=== PATIENT | male | born 1995 | race Caucasian/White ===

== ENCOUNTER 2017-03-08 15:28 | Emergency (ER) | payer BC, OTHER ==
[~2017-03-08] VITALS: Ht 170.2 cm; Wt 81.7 kg
[2017-03-08 15:28] VITALS: O2SAT 98; Ht 170.2 cm; Wt 81.7 kg
[~2017-03-08 15:28] MED LIST: CLIN1GEL31 TD; CPR500 PO; LISD30CA4 PO; MCRK20 PO
--- NOTE | 2017-03-08 15:47 | EMERGENCY ROOM VISIT NOTE ---
History Report prepared by Drake: Ursula Don Under the Supervision of: Dr. Luis Enrique Yañez M.D. First contact with patient: 15:34 Chief Complaint: ALCOHOL OVERDOSE Stated Complaint: ETOH, UNRESP History of Present Illness The patient is a 21 year old male who presents to the Emergency Room with complaints of alcohol intoxication PHARMACY AIDE. He was brought to the ED by EMS. The patient was found on the ground next to his car in the parking lot. The history is limited due to alcohol intoxication. Source of History: nursing staff History Limited By: intoxication Onset: PHARMACY AIDE Position: other (global) Quality: other (alcohol overdose) Timing: other (persistent) Review of Systems Unobtainable due to unresponsive patient. Past Medical & Surgical Surgical Problems: (1) Hx of cholecystectomy Family History Diabetes mellitus Social History Smoking Status: Current Some Day Smoker Alcohol Use: occasionally Housing Status: lives with friends Occupation Status: [employer] Current/Historical Medications Unable to Obtain Active Prescriptions or Reported Meds Allergies Coded Allergies: No Known Allergies (Unverified , 02/24/13) Physical Exam Vital Signs Date Time Temp Pulse Resp B/P Pulse Ox O2 Delivery O2 Flow Rate FiO2 03/08/17 20:39 103 98 03/08/17 19:21 120 19 128/67 98 03/08/17 18:51 107 18 98 03/08/17 18:46 107 17 94 03/08/17 18:16 116 12 99 03/08/17 18:11 95 18 98 03/08/17 18:00 138/56 03/08/17 17:41 96 17 98 03/08/17 17:11 96 18 96 03/08/17 17:00 131/61 03/08/17 16:41 94 18 95 03/08/17 16:36 131/67 03/08/17 16:30 127/64 03/08/17 16:28 92 22 97 03/08/17 16:14 90 03/08/17 16:00 123/72 03/08/17 15:58 91 20 96 03/08/17 15:57 133/60 03/08/17 15:57 90 17 133/60 97 Room Air 03/08/17 15:33 112/73 03/08/17 15:28 93 17 112/73 98 Room Air 03/08/17 15:28 98 Room Air Physical Exam GENERAL: Patient is unresponsive to verbal and painful stimuli. SKIN: No erythema, pallor, cyanosis or rash HEENT: Normocephalic, no lumps, bumps, or bruises. No hemotympanum, Almonte's sign, or raccoon sign. Ears normal. Oral cavity and posterior pharynx appear normal. No bruising of the face or neck. Neck: Supple, no step off. LUNGS: Clear to auscultation. No wheezes, no rales, no rhonchi. HEART: No murmurs. No gallops. No rubs EXTREMITIES: Small abrasion behind his right leg. Small abrasion on the right elbow. NEUROLOGIC: Cranial nerves II-XII within normal limits. No gross motor sensory function deficits. Medical Decision & Procedures Laboratory Results Test 03/08/17 17:32 Ethyl Alcohol mg/dL 314.0 mg/dl (0-3) Laboratory results as stated above per my review. ED Course 153: Past medical records reviewed. The patient was evaluated in room A9A. A complete history and physical examination was performed. 1846: I reevaluated the patient. He remains unarousable. Medical Decision Differential diagnoses: alcohol overdose, substance abuse, metabolic disorder Patient arrived here and was evaluated for alcohol intoxication and other possible substance abuse. He was observed for a few hours and then ultimately signed off to Dr. Templeton for final disposition. Impression Primary Impression: Alcohol use with intoxication Scribe Attestation The scribe's documentation has been prepared under my direction and personally reviewed by me in its entirety. I confirm that the note above accurately reflects all work, treatment, procedures, and medical decision making performed by me. Departure Information Prescriptions Unable to Obtain Active Prescriptions or Reported Meds Referrals [facility] (PCP) Patient Instructions My [facility]
[2017-03-08 19:21] VITALS: BP 128/67
--- NOTE | 2017-03-08 20:28 | EMERGENCY ROOM VISIT NOTE ---
ED Visit Note First contact with patient: 19:01 Patient is a 21-year-old male who was signed out to me by Dr. Yañez awaiting a sober friend. He was medically cleared. At 8:20 PM patient had a sober friend who present at bedside and is driving. He is agreeable to watching Mr. Nunn for the remainder of the night. He felt comfortable taking him home. Discussed with Pt/friend concerning signs and symptoms to watch out for. Pt/friend was instructed to follow up with their PCP and discussed with the patient their option to return to the ED at anytime for persistent or worsening symptoms. The appropriate anticipatory guidance and out-patient management, including indications for return to the emergency department, were explained at length to the patient/friend and understood.
[2017-03-08 20:39] VITALS: PULSE 103; O2SAT 98
== END 2017-03-08 20:42 | disposition home or self-care (01) ==
LOC: EDBD 15:28 → C.EDA 15:35
DX: F10.129 Alcohol abuse with intoxication, unspecified (principal); Y90.8 Blood alcohol level of 240 mg/100 ml or more; F17.200 Nicotine dependence, unspecified, uncomplicated; Z90.49 Acquired absence of other specified parts of digestive tract